=== PATIENT | male | born 1980 | race Caucasian/White ===

== ENCOUNTER 2016-12-09 12:45 | Emergency (ER) | payer OTHER ==
[~2016-12-09] VITALS: Ht 162.5 cm; Wt 68.0 kg
[~2016-12-09 12:45] MED LIST: CILOXAN 5 ML5 M1 OT; IBU-8800 MG PO; NKHM; NORFLEX100 MG PO; VICO75300 PO
[2016-12-09] MEDS ORDERED: NAPROSYN500 MG PO (13:18)
[2016-12-09] MEDS ORDERED: CLINDAMYCIN HC300 MG PO (13:18)
== END 2016-12-09 13:30 | disposition home or self-care (01) ==
LOC: ED 12:45
DX: K08.89 Other specified disorders of teeth and supporting structures (principal); F17.200 Nicotine dependence, unspecified, uncomplicated; Z88.0 Allergy status to penicillin

== ENCOUNTER → 2023-06-07 | Outpatient (CLI) | payer OTHER ==
[~2023-06-07] MED LIST changes: +CLINDAMYCIN HC300 MG PO; +NAPROSYN500 MG PO
== END | disposition home or self-care (01) ==
LOC: RAD 09:05
PROVIDERS: ATTEND Internal Medicine
DX: M41.54 Other secondary scoliosis, thoracic region (principal); M25.78 Osteophyte, vertebrae; M48.061 Spinal stenosis, lumbar region without neurogenic claudication